=== PATIENT | male | born 1945 | race Caucasian/White ===

== ENCOUNTER 2020-05-16 21:01 | Emergency (ER) | payer MEDICAID ==
[~2020-05-16] VITALS: Ht 182.9 cm; Wt 72.6 kg
[2020-05-16 21:01] VITALS: BP 130/81
--- NOTE | 2020-05-16 21:01 | NUR ---
ED Nurse Note: pt WALLACE ADAMS 25 from [facility] s/p fall. Pt is AAOx3, braething even and unlabored. No c/o PEREZ, dizzyness, nausea, blurry vision. Vital signs stable
--- NOTE | 2020-05-16 21:13 | Emergency Room Report ---
History of Present Illness General Chief Complaint: Multiple Trauma/Fall Source: Patient, EMS Present Illness HPI Disclaimer: Please note that this report is being documented using [employer] technology. This can lead to erroneous entry secondary to incorrect interpretation by the dictating instrument. HPI: 75-year-old male presents from nursing facility after a fall. The patient reportedly slipped out of his wheelchair however is unclear whether or not he hit his head. He has a history of parkinsonism, early dementia and has a vagus nerve stimulator. Does not take blood thinners. He is complaining of pain over the left side of his head. He goes through episodes of speaking and cooperative and then will not speak again. EMS states they were told this was his baseline. PMH: Concern is him, dementia PSH: Vagus nerve stimulator Allergies: Reviewed Social Hx: Reviewed Allergies: Coded Allergies: TERAZOSIN (Verified Allergy, Mild, 05/16/20) COVID-19 Screening Contact w/high risk pt: No Experienced COVID-19 symptoms?: No COVID-19 Testing performed SHOE ASSOCIATE: No Review of Systems All Other Systems: limited - Due to patient cooperation Physical Exam Vital Signs Date Time Temp Pulse Resp B/P (MAP) Pulse Ox O2 Delivery O2 Flow Rate FiO2 05/16/20 20:56 99.0 72 18 134/88 (103) 99 Room Air General: Awake, no acute distress. HEENT: NC/AT. Scalp or facial hematomas lacerations or abrasions. EOMI. PERRLA. Cardiovascular: RRR. S1 and S2 normal. No murmur appreciated Resp: Normal work of breathing. No cough, wheezing or crackles appreciated Skin: Intact. No abrasions, laceration or rash over the exposed skin MSK: Normal tone and bulk. Moving all extremities. No obvious deformity. Neuro: Awake. Moving all extremities. Not providing much history. Medical Decision Making Diagnostic Impression: Primary Impression: Fall Additional Impression: Head injury ER Course Is a 75-year-old male presenting for evaluation of suspected fall. No evidence of external trauma. Unclear whether or not there was an actual fall. No evide nce of acute intracranial injury or acute cervical spine fracture or subluxation on CT imaging. Wires from nerve stimulator appear in place. Will return to senior care facility. His PMD was updated. CT/MRI/US Diagnostic Results CT/MRI/US Diagnostic Results : Impression Final Report EXAM: CT Head Without Intravenous Contrast CLINICAL HISTORY: Status post fall with pain TECHNIQUE: Axial computed tomography images of the head/brain without intravenous contrast. Axial and coronal images only were submitted for evaluation. There are no sagittal reconstructed images available for review. CTDI is 53.4 mGy and DLP is 1045.5 mGy-cm. One or more of the following dose reduction techniques were used: automated exposure control, adjustment of the mA and/or kV according to patient size, use of iterative reconstruction technique. COMPARISON: No relevant prior studies available. FINDINGS: Brain: Areas of decreased density in the white matter which are nonspecific but are likely related to small vessel ischemic changes. Cerebral atrophy. No hemorrhage. Ventricles: Unremarkable. Bones/joints: Unremarkable. No acute fracture. Soft tissues: Unremarkable. Sinuses: Focal areas of mild mucosal thickening in the paranasal sinuses. Mastoid air cells: Unremarkable as visualized. No mastoid effusion. Tubes, lines and devices: Metallic leads are seen extending through the frontal regions bilaterally with tips in the regions of the basal ganglia. These cause artifact and limit evaluation. IMPRESSION: 1. Areas of decreased density in the white matter which are nonspecific but are likely related to small vessel ischemic changes. 2. Cerebral atrophy. 3. No definite CT evidence for acute intracranial injury. Radiologist: Raffaele Felipe M.D. Electronically Signed: 05/16/20 21:58 Study ready at 21:41 and initial results transmitted at 21:58 IMPRESSION: No evidence for cervical spine fracture. Degenerative changes of the cervical spine. Dictated By: Raffaele Felipe MD Electronically Signed By:Raffaele Felipe MD Signed Date/Time05/16/20 9540 CC: Gerardo Sauceda MD Last Vital Signs Date Time Temp Pulse Resp B/P (MAP) Pulse Ox O2 Delivery O2 Flow Rate FiO2 05/16/20 20:56 99.0 72 18 134/88 (103) 99 Room Air Disposition: SNF Condition: Stable Gerardo Sauceda MD May 16, 2020 21:13
--- NOTE | 2020-05-16 21:29 | NUR ---
ED Nurse Note: pt went down to CT via gurney accompanied by CT staff, pt in stable condition.
--- NOTE | 2020-05-16 21:58 | Diagnostic Imaging Report ---
EXAM: CT Head Without Intravenous Contrast CLINICAL HISTORY: Status post fall with pain TECHNIQUE: Axial computed tomography images of the head/brain without intravenous contrast. Axial and coronal images only were submitted for evaluation. There are no sagittal reconstructed images available for review. CTDI is 53.4 mGy and DLP is 1045.5 mGy-cm. One or more of the following dose reduction techniques were used: automated exposure control, adjustment of the mA and/or kV according to patient size, use of iterative reconstruction technique. COMPARISON: No relevant prior studies available. FINDINGS: Brain: Areas of decreased density in the white matter which are nonspecific but are likely related to small vessel ischemic changes. Cerebral atrophy. No hemorrhage. Ventricles: Unremarkable. Bones/joints: Unremarkable. No acute fracture. Soft tissues: Unremarkable. Sinuses: Focal areas of mild mucosal thickening in the paranasal sinuses. Mastoid air cells: Unremarkable as visualized. No mastoid effusion. Tubes, lines and devices: Metallic leads are seen extending through the frontal regions bilaterally with tips in the regions of the basal ganglia. These cause artifact and limit evaluation. IMPRESSION: 1. Areas of decreased density in the white matter which are nonspecific but are likely related to small vessel ischemic changes. 2. Cerebral atrophy. 3. No definite CT evidence for acute intracranial injury.
--- NOTE | 2020-05-16 22:08 | Diagnostic Imaging Report ---
EXAM: CT Cervical Spine Without Intravenous Contrast CLINICAL HISTORY: Status post fall with pain TECHNIQUE: Axial computed tomography images of the cervical spine without intravenous contrast. CTDI is 20.2 mGy and DLP is 535.5 mGy-cm. One or more of the following dose reduction techniques were used: automated exposure control, adjustment of the mA and/or kV according to patient size, use of iterative reconstruction technique. Coronal and sagittal reformatted images were created and reviewed. COMPARISON: No relevant prior studies available. FINDINGS: Vertebrae: No evidence for cervical spine fracture. The vertebral alignment is normal. Degenerative changes of the facet joints at multiple levels. Discs/spinal canal/neural foramina: Mild left neural foraminal narrowing at C3-C4. Mild to moderate left neural foraminal narrowing at C4-C5. Mild left neural foraminal narrowing at C5-C6. A disc bulge is suspected at C3-C4. Soft tissues: Grossly unremarkable for a noncontrast CT. Vasculature: Vascular atherosclerotic calcifications. Tubes, lines and devices: A metallic lead is seen in the subcutaneous tissues of the neck on the right. IMPRESSION: No evidence for cervical spine fracture. Degenerative changes of the cervical spine.
[2020-05-16 23:11] VITALS: BP 128/76
--- NOTE | 2020-05-16 23:11 | NUR ---
ED Nurse Note: [facility] at bedside. Pt is cleared for DC per EDMD. [facility]. Pt vital signs stable. Belongings and summary report given to [facility].
== END 2020-05-16 23:11 ==
LOC: EDBD 21:01 → EMR 21:52
DX: S09.90XA Unspecified injury of head, initial encounter (principal); G31.83 Neurocognitive disorder with Lewy bodies; F02.80 Dementia in other diseases classified elsewhere, unspecified severity, without behavioral disturbance, psychotic disturbance, mood disturbance, and anxiety; W05.0XXA Fall from non-moving wheelchair, initial encounter; Y93.89 Activity, other specified; Y92.129 Unspecified place in nursing home as the place of occurrence of the external cause; Z96.82 Presence of neurostimulator; Z88.8 Allergy status to other drugs, medicaments and biological substances
CPT/HCPCS: 70450; 72125; Z7502; 99284